=== PATIENT | female | born 1985 | race Caucasian/White ===

== ENCOUNTER 2016-08-15 23:49 | Inpatient (IN) | payer BC ==
[2016-08-16] MEDS ORDERED: OXYTOCIN 10 UNIT/ML 1 ML VIAL IM PRN (01:26)
[2016-08-16] MEDS ORDERED: CARBOPROST TROMETHAMINE 250 MCG/ML 1 ML AMP IM PRN (01:26)
[2016-08-16] MEDS ORDERED: TERBUTALINE 1 MG/ML VIAL SQ PRN (01:26)
[2016-08-16] MEDS ORDERED: LIDOCAINE 1% (PF) 10 MG/ML (30 ML SDV) SQ PRN (01:26)
[2016-08-16] MEDS ORDERED: METHYLERGONOVINE 0.2 MG/ML 1 ML AMP IM PRN (01:26)
[2016-08-16 01:40] VITALS: BMI 34.4
[2016-08-16] MEDS: LACTATED RINGERS 1,000 ML IV SCH ×2 (01:45→02:23)
[2016-08-16 01:52] LABS: Basophils % (A) 0 %; CH 28.3; CHCM 33.2; Eosinophils # (A) 0.3 k/uL (0-0.7); Eosinophils % (A) 2 %; HCT 38.6 % (34.0-46.0); HDW 3.35; HGB 12.5 gm/dL (11.4-16.0); Hypochromasia Slight; Luc # (Auto) 0.27; Luc % (Auto) 2; Lymphocytes # (A) 1.6 k/uL (1.0-4.8); Lymphocytes % (A) 10 %; MCH 27.7 pg (25.0-35.0); MCHC 32.4 g/dL (31.0-37.0); MCV 85.4 fL (80.0-100.0); Mean Platelet Volume 8.3; Monocytes # (A) 0.7 k/uL (0-1.0); Monocytes % (A) 4 %; Neutrophils # (A) 13.5 k/uL (1.3-7.7); Neutrophils % (A) 83 %; RBC 4.51 m/uL (3.80-5.40); RDW 13.7 % (11.5-15.5); WBC 16.3 k/uL (3.8-10.6); WBC (Perox) 16.96
[2016-08-16] MEDS ORDERED: fentaNYL (PF) 50 MCG/ML 5 ML AMP ONE (01:58)
[2016-08-16] MEDS ORDERED: SODIUM CHLORIDE 0.9% 100 ML BAG ONE (01:58)
[2016-08-16] MEDS ORDERED: BUPIVACAINE (PF) 0.25% 30 ML VIAL ONE (01:58)
--- NOTE | 2016-08-16 07:46 | P.HPOB ---
History of Present Illness H&P Date: 08/16/16 Chief Complaint: Labor at 38-6/7 weeks' This is a 31-year-old 3 para 06/14/2002 woman with an estimated due date of 08/24/2016 based on LMP. She presents at 38-6/7 weeks' gestation in spontaneous active labor. She has had an uncomplicated . On presentation she reports contractions however denies vaginal bleeding or leakage of fluids. Laboratory data: Blood type A+, antibody screen negative, rubella immune, VDRL nonreactive, hepatitis B surface antigen negative, HIV negative, group B strep negative. Obstetric history: 36 week vaginal delivery in 2005, 39 week vaginal delivery in 2010. Review of Systems All systems: negative Past Medical History Past Medical History: Thyroid Disorder (Hypothyroid) History of Any Multi-Drug Resistant Organisms: None Reported Past Surgical History: No Surgical Hx Reported Past Anesthesia/Blood Transfusion Reactions: No Reported Reaction Past Psychological History: No Psychological Hx Reported Smoking Status: Never smoker Past Alcohol Use History: Occasional Past Drug Use History: None Reported - Past Family History Mother Family Medical History: Diabetes Mellitus Medications and Allergies Home Medications Medication Instructions Recorded Confirmed Type Levothyroxine Sodium [Synthroid] 112 mcg PO DAILY 04/08/15 08/16/16 History Loratadine [Claritin] 10 mg PO DAILY 05/31/16 08/16/16 History Omeprazole [PriLOSEC] 40 mg PO DAILY 05/31/16 08/16/16 History Pnv with Ca,No.72/Iron/FA 1 tab PO DAILY 05/31/16 08/16/16 History [ Plus Tablet] Allergies Allergy/AdvReac Type Severity Reaction Status Date / Time sulfamethoxazole Allergy Severe Rash/Hives Verified 08/16/16 00:08 [From Bactrim] azithromycin [From Zithromax] Allergy Intermediate Nausea & Verified 08/16/16 00 :08 Vomiting & Diarrhea trimethoprim [From Bactrim] Allergy Rash/Hives Verified 08/16/16 00:08 Exam - Vital Signs Vital signs: Vital Signs Temp Pulse Resp BP 08/16/16 07:19 99.2 F 08/16/16 00:20 97.7 F 98 18 138/74 Intake and Output 08/15/16 08/16/16 08/16/16 22:59 06:59 14:59 Intake Total 2000 Output Total 200 Balance 1800 Intake: IV 2000 Lactated Ringers 1,000 ml 2000 @ 125 mls/hr IV .Q8H YULY Rx#:[id number] Output: Urine 200 Other: # Voids 1 Weight 82.554 kg Targeted physical exam is performed. Upon my initial evaluation the patient is resting comfortably with an epidural anesthetic in place. heart tones are reassuring by external monitoring. Her cervix is 7 cm dilated, 90% effaced, vertex in the -1 station. Artificial rupture of membranes is undertaken and blood-tinged clear fluid is noted. She has 1+ bilateral lower extremity edema. Results Result Diagrams: 08/16/16 01:45 Abnormal Lab Results - Last 24 Hours (Table) 08/16/16 Range/Units 01:45 WBC 16.3 H (3.8-10.6) k/uL Neutrophils # 13.5 H (1.3-7.7) k/uL Assessment and Plan (1) 38 weeks gestation of Status: Acute (2) Hypothyroid in , antepartum Status: Acute (3) Spontaneous onset of labor Status: Acute Plan: This is a 31-year-old 3 para 06/14/2002 woman who presents at 38-6/7 weeks' gestation in spontaneous active labor. status is currently reassuring by external monitoring. She is group B strep negative and Rh+ . I anticipate normal spontaneous vaginal delivery.
[2016-08-16] MEDS ORDERED: OXYTOCIN 30 UNITS/500 ML NS 30 UNIT in SALINE 1 500ML.BAG IV SCH (08:00)
[2016-08-16] MEDS ORDERED: ACETAMINOPHEN TAB 325 MG TAB PO PRN (09:37)
[2016-08-16] MEDS ORDERED: LANOLIN CREAM 5 GM TUBE TOPICAL PRN (09:37)
[2016-08-16] MEDS ORDERED: diphenhydrAMINE 25 MG CAP PO PRN (09:37)
[2016-08-16] MEDS ORDERED: ZOLPIDEM 5 MG TAB PO PRN (09:37)
[2016-08-16] MEDS ORDERED: SIMETHICONE 80 MG CHEWABLE PO PRN (09:37)
[2016-08-16] MEDS ORDERED: BENZOCAINE/MENTHOL SPRAY 1 GM/SPRAY AEROSOL TOPICAL PRN (09:37)
[2016-08-16] MEDS ORDERED: diphenhydrAMINE 50 MG/ML 1 ML VIAL IVP PRN ×2 (09:37)
[2016-08-16] MEDS ORDERED: HYDROCORTISONE 2.5% RECTAL CREAM 30 GM TUBE RECTAL PRN (09:37)
[2016-08-16] MEDS ORDERED: WITCH HAZEL 1 EACH MED..PAD TOPICAL PRN (09:37)
[2016-08-16] MEDS ORDERED: diphenhydrAMINE 50 MG CAP PO PRN (09:37)
--- NOTE | 2016-08-16 09:37 | P.PROBDLV ---
Vaginal Delivery Note - . Vaginal Delivery Note: Findings: Male infant in the vertex left occiput anterior position with Apgars of 9 at 1 minute and 9 at 5 minutes. Weight pending. First-degree perineal laceration. EBL 100 mL's. Delivery summary: This is a 31-year-old gravida3 para 06/14/2002 woman who presented in spontaneous active labor at 38-6/7 weeks' gestation. Following admission she did receive an epidural anesthetic. She underwent artificial rupture of membranes at approximate 7 cm dilated. She then progressed to complete cervical dilation. She had a rapid second stage of labor. With , she was repositioned, prepped and draped in the dorsal modified lithotomy position. With additional maternal effort the head delivered from the left occiput anterior position. There was a compound presentation with the hand delivering with the anterior shoulder. The rest the infant was delivered onto the field. The nose and mouth were bulb suctioned. The infant was placed on the maternal abdomen. After the cord was done pulsing it was clamped and cut. The infant was taken to the warmer for evaluation. Apgars were 9 at 1 minute and 9 at 5 minutes. Weight is pending. The perineum was inspected and a small first-degree laceration was noted. This was infused with lidocaine and repaired in a [id number] fashion with 3-0 Vicryl suture. An intact, three- vessel cord placenta was then expressed. It was inspected and noted to be intact. The vagina, cervix and perineum were all reinspected and noted to be without further lacerations. The uterus was massaged and was noted to be firm at the level of the umbilicus. All counts were correct. Both mother and were doing well post delivery in the room.
[2016-08-16] MEDS: IBUPROFEN 600 MG TAB PO PRN ×2 (10:00→19:52)
[2016-08-16] MEDS: SENNOSIDES-DOCUSATE SODIUM 1 EACH TAB PO SCH (19:52)
[2016-08-16] MEDS: OXYTOCIN 30 UNITS/500 ML NS 30 UNIT in SALINE 1 500ML.BAG IV SCH (19:53)
[2016-08-17] MEDS: IBUPROFEN 600 MG TAB PO PRN (05:37)
[2016-08-17 09:13] VITALS: BP 118/66; PULSE 83; RESP 16; TEMP 97.2
[2016-08-17] MEDS: SENNOSIDES-DOCUSATE SODIUM 1 EACH TAB PO SCH (09:13)
--- NOTE | 2016-08-17 09:18 | P.DS ---
Providers Date of admission: 08/16/16 01:25 Expected date of discharge: 08/17/16 Attending physician: Raf Bojorquez Primary care physician: Stated None - Discharge Diagnosis(es) (1) Normal spontaneous vaginal delivery Current Visit: Yes Status: Acute (2) 38 weeks gestation of Current Visit: Yes Status: Acute Hospital Course: The patient is a 31-year-old 3 para 1102 admitted at 38-6/7 weeks in early active labor with all signs reassuring. Her has been uncomplicated and group B strep status is negative. On labor and delivery, she underwent artificial rupture of membranes and had an epidural catheter placed for analgesia. She progressed to complete and then pushed to a normal spontaneous vaginal delivery of a viable male infant with Apgars of 9 at 1 minute and 9 at 5 minutes. Her course was unremarkable with vital signs or any stable and her temperature was afebrile throughout. She was deemed stable for discharge by day #1 and was discharged home to follow-up in the office in 6 weeks' time routinely. Discharge instructions included calling for any significantly increased bleeding or foul-smelling lochia, significantly increased fever abdominal pain, perineal complaints, breast complaints, or anything else that concerned her. She is additionally instructed to have nothing in the vagina for at least 6 weeks time to include intercourse. She understood her instructions and agrees follow up as noted above. Discharge medications included only [id number] analgesic pain medications as necessary. Maternal blood type is A+ and rubella status is immune. Procedures: 1. Epidural analgesia 2. Artificial rupture membranes #3. Normal spontaneous vaginal delivery Patient Condition at Discharge: Good Plan - Discharge Summary Discharge Medication List Levothyroxine Sodium [Synthroid] 112 mcg PO DAILY 04/08/15 [History] Loratadine [Claritin] 10 mg PO DAILY 05/31/16 [History] Omeprazole [PriLOSEC] 40 mg PO DAILY 05/31/16 [History] Pnv with Ca,No.72/Iron/FA [ Plus Tablet] 1 tab PO DAILY 05/31/16 [ History] Follow up Appointment(s)/Referral(s): Raf Bojorquez MD [STAFF PHYSICIAN] - 6 Weeks Discharge Disposition: HOME SELF-CARE
== END 2016-08-17 11:15 | disposition home or self-care (01) | DRG 775 ==
LOC: FBPOP 23:49 → 4FBP 08-16 01:25
PROVIDERS: ADMIT Obstetrics & Gynecology; ATTEND Obstetrics & Gynecology
PROC: 10E0XZZ Delivery of Products of Conception, External Approach (ICD-10-PCS; principal; 2016-08-16)
PROC: 0HQ9XZZ Repair Perineum Skin, External Approach (ICD-10-PCS; 2016-08-16)
PROC: 00HU33Z Insertion of Infusion Device into Spinal Canal, Percutaneous Approach (ICD-10-PCS; 2016-08-16)
PROC: 3E0R3CZ (ICD-10-PCS; 2016-08-16)
DX: O32.6XX0 Maternal care for compound presentation, not applicable or unspecified (principal); E03.9 Hypothyroidism, unspecified; O70.0 First degree perineal laceration during delivery; Z37.0 Single live birth; Z3A.38 38 weeks gestation of pregnancy; O99.284 Endocrine, nutritional and metabolic diseases complicating childbirth; Z79.899 Other long term (current) drug therapy
CPT/HCPCS: 59025; 85025; 88307; 99213

== ENCOUNTER → 2016-09-09 | Outpatient (CLI) | payer BC ==
[2016-09-09 12:19] LABS: CH 27.4; CHCM 32.6; HCT 42.5 % (34.0-46.0); HDW 2.86; HGB 14.1 gm/dL (11.4-16.0); MCHC 33.3 g/dL (31.0-37.0); MCV 84.3 fL (80.0-100.0); Mean Platelet Volume 8.2; RBC 5.04 m/uL (3.80-5.40); RDW 13.7 % (11.5-15.5); WBC 5.3 k/uL (3.8-10.6)
[2016-09-09 12:46] LABS: ALT 28 U/L (9-52); AST 25 U/L (14-36); Alkaline Phosphatase 95 U/L (38-126); Anion Gap 11 mmol/L; Blood Urea Nitrogen 13 mg/dL (7-17); Calcium 9.2 mg/dL (8.4-10.2); Carbon Dioxide 26 mmol/L (22-30); Chloride 104 mmol/L (98-107); Glucose 85 mg/dL (74-99); Non-African American GFR(MDRD) >60 (>60 ml/min/1.73 sqM); Potassium 4.7 mmol/L (3.5-5.1); Sodium 141 mmol/L (137-145); Total Bilirubin 0.5 mg/dL (0.2-1.3); Total Protein 7.2 g/dL (6.3-8.2)
== END | disposition home or self-care (01) ==
LOC: LABWHC1 11:53
PROVIDERS: ATTEND Physician Assistant Medical
DX: E03.9 Hypothyroidism, unspecified (principal); F53 Mental and behavioral disorders associated with the puerperium, not elsewhere classified; F41.9 Anxiety disorder, unspecified
CPT/HCPCS: 36415; 80053; 84439; 84443; 84480; 85027

== ENCOUNTER 2017-05-03 16:13 | Emergency (ER) | payer BC ==
[2017-05-03 16:24] VITALS: BP 133/74; PULSE 73; RESP 18; TEMP 97.5
--- NOTE | 2017-05-03 17:19 | ED ---
Upper Extremity HPI - General Chief Complaint: Extremity Injury, Upper Stated Complaint: Slammed finger in car door Time Seen by Provider: 05/03/17 16:43 Source: patient, RN notes reviewed Mode of arrival: ambulatory Limitations: no limitations - History of Present Illness Initial Comments: 29-year-old female presents emergency department to complaint of right hand third digit finger pain. Patient states that she went to catch a car door that her daughter tried discharged states that her finger slammed in the door. She states is not causing a laceration and there is no swelling to the distal tip of her finger or bleeding noted. Patient states that she has pain just proximal to the PIP patient states she is able to move her or causes moderate discomfort. - Related Data Home Medications Medication Instructions Recorded Confirmed Loratadine [Claritin] 10 mg PO DAILY 05/31/16 05/03/17 Omeprazole [PriLOSEC] 40 mg PO DAILY 05/31/16 05/03/17 Astelin Nasal [place] 1 spray EA NOSTRIL BID 05/03/17 05/03/17 Levothyroxine Sodium [Synthroid] 125 mcg PO DAILY 05/03/17 05/03/17 Allergies Allergy/AdvReac Type Severity Reaction Status Date / Time sulfamethoxazole Allergy Severe Rash/Hives Verified 05/03/17 16:49 [From Bactrim] azithromycin [From Zithromax] Allergy Intermediate Nausea & Verified 05/03/17 16 :49 Vomiting & Diarrhea trimethoprim [From Bactrim] Allergy Rash/Hives Verified 05/03/17 16:49 Review of Systems ROS Statement: Those systems with pertinent positive or pertinent negative responses have been documented in the HPI. ROS Other: All systems not noted in ROS Statement are negative. Past Medical History Past Medical History: Thyroid Disorder History of Any Multi-Drug Resistant Organisms: None Reported Past Surgical History: No Surgical Hx Reported Past Anesthesia/Blood Transfusion Reactions: No Reported Reaction Past Psychological History: No Psychological Hx Reported Smoking Status: Never smoker Past Alcohol Use History: Occasional Past Drug Use History: None Reported - Past Family History Mother Family Medical History: Diabetes Mellitus General Exam Limitations: no limitations General appearance: alert, in no apparent distress Head exam: Present: atraumatic, normocephalic, normal inspection Eye exam: Present: normal appearance, PERRL, EOMI. Absent: scleral icterus, conjunctival injection, periorbital swelling ENT exam: Present: normal exam, normal oropharynx, mucous membranes moist, TM's normal bilaterally Respiratory exam: Present: normal lung sounds bilaterally. Absent: respiratory distress, wheezes, rales, rhonchi, stridor Cardiovascular Exam: Present: regular rate, normal rhythm, normal heart sounds. Absent: systolic murmur, diastolic murmur, rubs, gallop, clicks Extremities exam: Present: other (Right hand third digit there is tenderness just proximal to the PIP no swelling no ecchymosis no abrasions or lacerations neurovascular intact Refill less than 2 seconds.) Course Vital Signs 05/03/17 16:22 Temperature 97.5 F L Pulse Rate 73 Respiratory 18 Rate Blood Pressure 133/74 O2 Sat by Pulse 98 Oximetry Medical Decision Making - Medical Decision Making 31-year-old female presents emergency department for finger injury. There is no acute fracture. Patient be discharged at this time return parameters were discussed Disposition Clinical Impression: Finger contusion Disposition: HOME SELF-CARE Condition: Stable Instructions: Contusion in Adults (ED) Additional Instructions: Please return to the Emergency Department if symptoms worsen or any other concerns. Referrals: Nicolas Da Silva, PAC [REFERRING] - 1-2 days Time of Disposition: 17:51
--- NOTE | 2017-05-03 17:48 | XR ---
EXAMINATION TYPE: XR finger RT DATE OF EXAM: 05/03/2017 COMPARISON: NONE HISTORY: Finger injury TECHNIQUE: 3 views FINDINGS: I see no fracture nor dislocation. Joint spaces are normal. There are no pathologic calcifi cations. IMPRESSION: Negative right middle finger exam.
== END 2017-05-03 18:16 | disposition home or self-care (01) ==
LOC: EC 16:13 → SUPCPDRO 16:13 → EC 18:16
DX: S60.031A Contusion of right middle finger without damage to nail, initial encounter (principal); E07.9 Disorder of thyroid, unspecified; Z88.1 Allergy status to other antibiotic agents; Z79.899 Other long term (current) drug therapy; W23.0XXA Caught, crushed, jammed, or pinched between moving objects, initial encounter
CPT/HCPCS: 99283

== ENCOUNTER 2017-05-12 11:59 | Emergency (ER) | payer BC ==
[2017-05-12 12:06] VITALS: BP 120/68; PULSE 76; RESP 18; TEMP 97.8
--- NOTE | 2017-05-12 12:16 | ED ---
Lower Extremity Injury HPI - General Chief Complaint: Extremity Injury, Lower Stated Complaint: Ankle Injury Time Seen by Provider: 05/12/17 12:07 Source: patient, RN notes reviewed, old records reviewed Mode of arrival: ambulatory Limitations: no limitations - History of Present Illness Initial Comments: 31-year-old female presents emergency Department with left ankle pain and swelling. She reports that she rolled her ankle yesterday while stepping off a step. Denies any previous ankle injuries. She states that she has been able to bear weight on it but does cause some pain and pressure. Pain is mainly over the lateral malleolus. She denies any foot or knee pain. Denies any peripheral paresthesias. Patient denies any recent fever, chills, shortness of breath, chest pain, back pain, abdominal pain, nausea vomiting, numbness or tingling, dysuria or hematuria, constipation or diarrhea, headaches or visual changes, or any other current symptoms - Related Data Home Medications Medication Instructions Recorded Confirmed Loratadine [Claritin] 10 mg PO DAILY 05/31/16 05/12/17 Omeprazole [PriLOSEC] 40 mg PO DAILY 05/31/16 05/12/17 Astelin Nasal [place] 1 spray EA NOSTRIL BID 05/03/17 05/12/17 Levothyroxine Sodium [Synthroid] 125 mcg PO DAILY 05/03/17 05/12/17 Previous Rx's Medication Instructions Recorded Ibuprofen [Motrin] 600 mg PO Q8HR PRN #20 tab 05/12/17 Allergies Allergy/AdvReac Type Severity Reaction Status Date / Time sulfamethoxazole Allergy Severe Rash/Hives Verified 05/12/17 12:06 [From Bactrim] azithromycin [From Zithromax] Allergy Intermediate Nausea & Verified 05/12/17 12 :06 Vomiting & Diarrhea trimethoprim [From Bactrim] Allergy Rash/Hives Verified 05/12/17 12:06 Review of Systems ROS Statement: Those systems with pertinent positive or pertinent negative responses have been documented in the HPI. ROS Other: All systems not noted in ROS Statement are negative. Past Medical History Past Medical History: Thyroid Disorder History of Any Multi-Drug Resistant Organisms: None Reported Past Surgical History: No Surgical Hx Reported Past Anesthesia/Blood Transfusion Reactions: No Reported Reaction Past Psychological History: No Psychological Hx Reported Smoking Status: Never smoker Past Alcohol Use History: Occasional Past Drug Use History: None Reported - Past Family History Mother Family Medical History: Diabetes Mellitus General Exam Limitations: no limitations General appearance: alert, in no apparent distress Head exam: Present: atraumatic, normocephalic, normal inspection Eye exam: Present: normal appearance, PERRL, EOMI. Absent: scleral icterus, conjunctival injection, periorbital swelling ENT exam: Present: normal exam, mucous membranes moist Neck exam: Present: normal inspection. Absent: tenderness, meningismus, lymphadenopathy Respiratory exam: Present: normal lung sounds bilaterally. Absent: respiratory distress, wheezes, rales, rhonchi, stridor Cardiovascular Exam: Present: regular rate, normal rhythm, normal heart sounds. Absent: systolic murmur, diastolic murmur, rubs, gallop, clicks GI/Abdominal exam: Present: soft, normal bowel sounds. Absent: distended, tenderness, guarding, rebound, rigid Extremities exam: Present: normal inspection Left Knee exam: Present: normal inspection, full ROM Lower Leg exam: Present: normal inspection, full ROM Ankle exam: Present: normal inspection, full ROM, tenderness (over lateral malleoulus ) Foot/Toe exam: Present: normal inspection, full ROM Neurovascular tendon exam: Present: no vascular compromise Gait: observed and normal Back exam: Present: normal inspection Neurological exam: Present: alert, oriented X3, CN II-XII intact Psychiatric exam: Present: normal affect, normal mood Skin exam: Present: warm, dry, intact, normal color. Absent: rash Course Vital Signs 05/12/17 12:04 Temperature 97.8 F Pulse Rate 76 Respiratory 18 Rate Blood Pressure 120/68 O2 Sat by Pulse 97 Oximetry Procedures - Orthopedic Splinting/Casting Injury #1 Side: left Lower Extremity Injury Location: ankle Lower Extremity Immobilizer: stirrup splint, AirCast, Timo wrap Other Orthopedic Equipment: crutches Additional Comments: Patient was reevaluated and neurovascularly intact after Timo wrap and ankle stirrup was applied. Medical Decision Making - Medical Decision Making Since emergency Department with left ankle pain after she rolled her ankle yesterday. Patient does have some tenderness over the lateral malleolus. She is bearing weight on it. On exam she does have some minor swelling noted, no bruising. At this time patient's x-ray show no acute fractures. She was placed in an Timo wrap and an ankle Aircast. Patient will be written for crutches. Discussed taking anti-inflammatory medicine and resting, icing and elevating the ankle. Patient agrees to treatment plan will comply. Discussed following up with orthopedic symptoms continue to persist. Return parameters were discussed. - Radiology Data Radiology results: report reviewed X-rays reviewed and negative for any abnormalities. A friend of symptoms continue to persist patient should follow-up with orthopedic in approximately 710 days. Disposition Clinical Impression: Left ankle sprain Disposition: HOME SELF-CARE Condition: Good Instructions: Ankle Sprain (ED) Additional Instructions: Patient recommended to follow up with orthopedic if symptoms continue to persist after one week. Use the Timo wrap, and splint as directed. Patient should rest, ice, and elevate the ankle. Return to emergency department if any alarming signs or symptoms occur. Prescriptions: Ibuprofen [Motrin] 600 mg PO Q8HR PRN #20 tab PRN Reason: Pain Referrals: Nicolas Da Silva PAC [Primary Care Provider] - 1-2 days Time of Disposition: 12:51
--- NOTE | 2017-05-12 12:41 | XR ---
EXAMINATION TYPE: XR ankle complete LT DATE OF EXAM: 05/12/2017 COMPARISON: NONE HISTORY: Pain FINDINGS: Three views of the ankle demonstrate the ankle mortise to be intact and symmetric. The joint spaces are preserved. The osseous structures are intact. IMPRESSION: 1. No definite acute fracture or dislocation, if symptoms persist follow-up study in 7 to 10 days wou ld be suggested.
== END 2017-05-12 13:08 | disposition home or self-care (01) ==
LOC: EC 11:59
DX: S93.402A Sprain of unspecified ligament of left ankle, initial encounter (principal); E07.9 Disorder of thyroid, unspecified; Z88.2 Allergy status to sulfonamides; Z88.1 Allergy status to other antibiotic agents; Z79.899 Other long term (current) drug therapy; X50.1XXA Overexertion from prolonged static or awkward postures, initial encounter
CPT/HCPCS: 29515; 99284

== ENCOUNTER 2017-10-31 13:52 | Emergency (ER) | payer BC ==
[2017-10-31 14:05] VITALS: BP 137/71; PULSE 79; RESP 16; TEMP 98
--- NOTE | 2017-10-31 15:06 | ED ---
General Adult HPI - General Chief complaint: Extremity Injury, Lower Stated complaint: foot injury Time Seen by Provider: 10/31/17 14:44 Source: patient Mode of arrival: ambulatory Limitations: no limitations - History of Present Illness Initial comments: 32-year-old female presents with right dorsal foot pain since yesterday. Patient states she was carrying a computer monitor out her car when it slipped and fell on the top of her foot. Patient had a flip-flop on. Patient states she did ice it yesterday and today ibuprofen. Patient states it hurts to ambulate and put pressure on it. No previous fracture but think she has sprained possibly that foot. No numbness or tingling. pt also having pressure in her left low back, no urgency or frequency but does feel bloated. no fever. no diarrhea -: days(s) (1) Location: right, lower extremity (foot) Quality: constant Improves with: immobilization Worsens with: movement (walking) Treatments Prior to Arrival: NSAID, cold therapy - Related Data Home Medications Medication Instructions Recorded Confirmed Loratadine [Claritin] 10 mg PO DAILY 05/31/16 10/31/17 Omeprazole [PriLOSEC] 40 mg PO DAILY 05/31/16 10/31/17 Astelin Nasal [place] 1 spray EA NOSTRIL BID 05/03/17 10/31/17 Levothyroxine Sodium [Synthroid] 125 mcg PO DAILY 05/03/17 10/31/17 Previous Rx's Medication Instructions Recorded Ibuprofen [Motrin] 600 mg PO Q8HR PRN #20 tab 05/12/17 Ciprofloxacin HCl [Cipro] 500 mg PO Q12HR #14 tablet 10/31/17 Allergies Allergy/AdvReac Type Severity Reaction Status Date / Time sulfamethoxazole Allergy Severe Rash/Hives Verified 10/31/17 14:05 [From Bactrim] azithromycin [From Zithromax] Allergy Intermediate Nausea & Verified 10/31/17 14 :05 Vomiting & Diarrhea trimethoprim [From Bactrim] Allergy Rash/Hives Verified 10/31/17 14:05 Review of Systems ROS Statement: Those systems with pertinent positive or pertinent negative responses have been documented in the HPI. ROS Other: All systems not noted in ROS Statement are negative. Musculoskeletal: Reports: other (right foot pain) Neurological: Reports: abnormal gait (limping). Denies: weakness, numbness, paresthesias Past Medical History Past Medical History: Thyroid Disorder History of Any Multi-Drug Resistant Organisms: None Reported Past Surgical History: No Surgical Hx Reported Past Anesthesia/Blood Transfusion Reactions: No Reported Reaction Past Psychological History: No Psychological Hx Reported Smoking Status: Never smoker Past Alcohol Use History: Occasional Past Drug Use History: None Reported - Past Family History Mother Family Medical History: Diabetes Mellitus General Exam Limitations: no limitations General appearance: alert, in no apparent distress GI/Abdominal exam: Present: soft, normal bowel sounds, other (mild left sided tender). Absent: distended, tenderness, guarding, rebound, rigid Back exam: Present: CVA tenderness (L) Neurological exam: Present: alert, oriented X3 Psychiatric exam: Present: normal affect, normal mood Skin exam: Present: warm, dry, intact Course Vital Signs 10/31/17 14:02 Temperature 98 F Pulse Rate 79 Respiratory 16 Rate Blood Pressure 137/71 O2 Sat by Pulse 99 Oximetry Medical Decision Making - Medical Decision Making Reviewed urinalysis and urine culture due to white blood cells that blood cells and bacteria be noted and there are we will start patient on ciprofloxacin. Reviewed x-ray negative for any acute changes patient given Timo wrap for support. - Lab Data Lab Results 10/31/17 10/31/17 Range/Units 15:10 15:10 Urine Color Light Yellow Urine Appearance Cloudy H (Clear) Urine pH 7.0 (5.0-8.0) Ur Specific [place] 1.004 (1.001-1.035) Urine Protein Negative (Negative) Urine Glucose (UA) Negative (Negative) Urine Ketones Negative (Negative) Urine Blood Trace H (Negative) Urine Nitrite Negative (Negative) Urine Bilirubin Negative (Negative) Urine Urobilinogen <2.0 (<2.0) mg/dL Ur Leukocyte Esterase Moderate H (Negative) Urine RBC 3 (0-5) /hpf Urine WBC 41 H (0-5) /hpf Ur Squamous Epith Cells 7 H (0-4) /hpf Urine Bacteria Rare H (None) /hpf Urine HCG, Qual Not Detected (Not Detectd) Disposition Clinical Impression: UTI (urinary tract infection), Foot pain, Contusion Disposition: HOME SELF-CARE Condition: Good Instructions: Urinary Tract Infection in Women (ED), Foot Contusion (ED) Prescriptions: Ciprofloxacin HCl [Cipro] 500 mg PO Q12HR #14 tablet Is patient prescribed a controlled substance at d/c from ED?: No If prescribed controlled substance>3 days was MAPS reviewed?: No When asked, does pt state using other controlled substances?: No Referrals: Laura Abdullahi DO [Primary Care Provider] - 1-2 days Time of Disposition: 16:01
[2017-10-31 15:24] LABS: Appearance,Urine Cloudy (Clear); Bacteria,Urine Rare /hpf; Bilirubin,Urine Negative (Negative); Blood,Urine Trace (Negative); Color,Urine Light Yellow; Glucose,Urine (UA) Negative (Negative); Ketones,Urine Negative (Negative); Leukocyte Esterase,Urine Moderate (Negative); Nitrite,Urine Negative (Negative); Protein,Urine Negative (Negative); RBC,Urine 3 /hpf (0-5); Specific Gravity,Urine 1.004 (1.001-1.035); Squamous Epithelial Cell,Urine 7 /hpf (0-4); Urobilinogen,Urine <2.0 mg/dL (<2.0); WBC,Urine 41 /hpf (0-5)
--- NOTE | 2017-10-31 15:39 | XR ---
EXAMINATION TYPE: XR foot complete RT DATE OF EXAM: 10/31/2017 COMPARISON: NONE HISTORY: 32-year-old female with pain after injury yesterday TECHNIQUE: Review FINDINGS: Incidental bipartite tibial sesamoid. No acute fracture, subluxation, or dislocation. IMPRESSION: No acute osseous abnormality seen.
== END 2017-10-31 16:07 | disposition home or self-care (01) ==
LOC: EC 13:52
DX: S90.31XA Contusion of right foot, initial encounter (principal); N39.0 Urinary tract infection, site not specified; E07.9 Disorder of thyroid, unspecified; Z79.899 Other long term (current) drug therapy; Z88.1 Allergy status to other antibiotic agents; Z88.2 Allergy status to sulfonamides; W01.0XXA Fall on same level from slipping, tripping and stumbling without subsequent striking against object, initial encounter
CPT/HCPCS: 81001; 81025; 87086; 99283

== ENCOUNTER 2018-03-18 10:56 | Emergency (ER) | payer BC ==
[2018-03-18 11:24] VITALS: BP 125/72; PULSE 60; RESP 18; TEMP 97.2
[2018-03-18] MEDS ORDERED: ACETAMINOPHEN TAB 500 MG TAB PO STA (11:40)
[2018-03-18] MEDS ORDERED: CYCLOBENZAPRINE 10 MG TAB PO STA (11:40)
--- NOTE | 2018-03-18 11:46 | ED ---
General Adult HPI - General Chief complaint: Neck Pain/Injury Stated complaint: Neck pain Time Seen by Provider: 03/18/18 11:32 Source: patient Mode of arrival: ambulatory Limitations: no limitations - History of Present Illness Initial comments: Patient is a 32-year-old female presents with a chief complaint of right-sided neck and shoulder pain after landing wrong after doing a flip on a trampoline yesterday with her kids. Patient denies any loss of consciousness, she denies any numbness or paresthesias. Aggravating factors include certain movements. Patient acknowledges headache likely from neck pain. She took Motrin last night with minimal relief. Patient drove herself to the emergency department today, she has no further complaints. - Related Data Home Medications Medication Instructions Recorded Confirmed Loratadine [Claritin] 10 mg PO DAILY 05/31/16 10/31/17 Omeprazole [PriLOSEC] 40 mg PO DAILY 05/31/16 10/31/17 Astelin Nasal [place] 1 spray EA NOSTRIL BID 05/03/17 10/31/17 Levothyroxine Sodium [Synthroid] 125 mcg PO DAILY 05/03/17 10/31/17 Previous Rx's Medication Instructions Recorded Ibuprofen [Motrin] 600 mg PO Q8HR PRN #20 tab 05/12/17 Ciprofloxacin HCl [Cipro] 500 mg PO Q12HR #14 tablet 10/31/17 Acetaminophen Tab [Tylenol Tab] 1,000 mg PO Q8HR #14 tablet 03/18/18 Cyclobenzaprine [Flexeril] 10 mg PO TID #12 tab 03/18/18 Ibuprofen [Motrin] 800 mg PO Q8H #14 tab 03/18/18 Allergies Allergy/AdvReac Type Severity Reaction Status Date / Time sulfamethoxazole Allergy Severe Rash/Hives Verified 10/31/17 14:05 [From Bactrim] azithromycin [From Zithromax] Allergy Intermediate Nausea & Verified 10/31/17 14 :05 Vomiting & Diarrhea trimethoprim [From Bactrim] Allergy Rash/Hives Verified 10/31/17 14:05 Review of Systems ROS Statement: Those systems with pertinent positive or pertinent negative responses have been documented in the HPI. ROS Other: All systems not noted in ROS Statement are negative. Musculoskeletal: Reports: arthralgia, other (Neck pain) Past Medical History Past Medical History: Thyroid Disorder History of Any Multi-Drug Resistant Organisms: None Reported Past Surgical History: No Surgical Hx Reported Past Anesthesia/Blood Transfusion Reactions: No Reported Reaction Past Psychological History: No Psychological Hx Reported Smoking Status: Never smoker Past Alcohol Use History: Occasional Past Drug Use History: None Reported - Past Family History Mother Family Medical History: Diabetes Mellitus General Exam Limitations: no limitations General appearance: alert, in no apparent distress Head exam: Present: atraumatic, normocephalic Eye exam: Present: normal appearance, PERRL ENT exam: Present: normal exam, mucous membranes moist Neck exam: Present: normal inspection, tenderness, other (Patient has limited mobility when turning her head to the right side. There is paraspinal muscular spasm on the right, there is no midline tenderness.). Absent: meningismus, full ROM, lymphadenopathy, thyromegaly Respiratory exam: Present: normal lung sounds bilaterally. Absent: respiratory distress Cardiovascular Exam: Present: regular rate, normal rhythm GI/Abdominal exam: Present: soft. Absent: distended, tenderness Rectal exam: Present: deferred Extremities exam: Present: normal inspection, full ROM Back exam: Present: normal inspection Neurological exam: Present: alert, oriented X3, CN II-XII intact. Absent: motor sensory deficit Psychiatric exam: Present: normal affect, normal mood Skin exam: Present: warm, dry, intact Course Vital Signs 03/18/18 11:20 Temperature 97.2 F L Pulse Rate 60 Respiratory 18 Rate Blood Pressure 125/72 O2 Sat by Pulse 98 Oximetry Medical Decision Making - Medical Decision Making Patient presents with chief complaint of right-sided neck and shoulder pain. On initial evaluation, vitals are stable, patient is in no acute distress. There is no midline tenderness, patient does not have any numbness paresthesias , or motor deficit in the upper extremities. I have a low suspicion for spinal cord injury. There is spasm of the paraspinal musculature of the right neck, and right shoulder. At this time, imaging does not seem to be warranted, patient to be treated with Tylenol and Flexeril. She was instructed to use Tylenol, Motrin, Flexeril, heat and ice on the outpatient basis. Follow-up primary care in 1-2 days, return to the emergency department if symptoms worsen or change. Disposition Clinical Impression: Strain of neck muscle Disposition: HOME SELF-CARE Condition: Good Instructions: Cervical Strain (ED) Is patient prescribed a controlled substance at d/c from ED?: No Referrals: None,Stated [Primary Care Provider] - 1-2 days
== END 2018-03-18 12:02 | disposition home or self-care (01) ==
LOC: EC 10:56
DX: S16.1XXA Strain of muscle, fascia and tendon at neck level, initial encounter (principal); E07.9 Disorder of thyroid, unspecified; Z88.1 Allergy status to other antibiotic agents; Z88.2 Allergy status to sulfonamides; Z79.899 Other long term (current) drug therapy; X50.1XXA Overexertion from prolonged static or awkward postures, initial encounter; Y93.44 Activity, trampolining; Y92.009 Unspecified place in unspecified non-institutional (private) residence as the place of occurrence of the external cause
CPT/HCPCS: 99283

== ENCOUNTER 2018-04-19 19:22 | Emergency (ER) | payer BC ==
[2018-04-19 19:42] VITALS: RESP 18; TEMP 98.7
--- NOTE | 2018-04-19 20:12 | ED ---
Upper Extremity HPI - General Chief Complaint: Extremity Injury, Upper Stated Complaint: Arm injury Time Seen by Provider: 04/19/18 19:44 Source: patient, RN notes reviewed, old records reviewed Mode of arrival: ambulatory Limitations: no limitations - History of Present Illness Initial Comments: Patient is a 32-year-old female who presents emergency department today with chief complaint of right elbow and forearm pain. Patient reports that she was painting, and tripped off a ladder. She reports that she landed on the couch and caught herself on her right elbow. Patient reports that she's had pain with flexion and extension of the elbow into the forearm. She reports occasional tingling to the distal fingertips. Patient states that she's had no previous injuries. She is right-handed.Patient denies any recent fever, chills , shortness of breath, chest pain, back pain, abdominal pain, nausea vomiting, numbness or tingling, dysuria or hematuria, constipation or diarrhea, headaches or visual changes, or any other current symptoms - Related Data Home Medications Medication Instructions Recorded Confirmed Levothyroxine Sodium [Synthroid] 125 mcg PO DAILY 05/03/17 04/19/18 Azelastine HCl 1 spray EA NOSTRIL DAILY PRN 04/19/18 04/19/18 Vitamin B Complex 1 cap PO DAILY 04/19/18 04/19/18 Previous Rx's Medication Instructions Recorded Ibuprofen 600 mg PO TID #30 tablet 04/19/18 Allergies Allergy/AdvReac Type Severity Reaction Status Date / Time sulfamethoxazole Allergy Severe Rash/Hives Verified 04/19/18 19:48 [From Bactrim] azithromycin [From Zithromax] Allergy Intermediate Nausea & Verified 04/19/18 19 :48 Vomiting & Diarrhea trimethoprim [From Bactrim] Allergy Rash/Hives Verified 04/19/18 19:48 Review of Systems ROS Statement: Those systems with pertinent positive or pertinent negative responses have been documented in the HPI. ROS Other: All systems not noted in ROS Statement are negative. Past Medical History Past Medical History: Thyroid Disorder History of Any Multi-Drug Resistant Organisms: None Reported Past Surgical History: No Surgical Hx Reported Past Anesthesia/Blood Transfusion Reactions: No Reported Reaction Past Psychological History: No Psychological Hx Reported Smoking Status: Never smoker Past Alcohol Use History: Occasional Past Drug Use History: None Reported - Past Family History Mother Family Medical History: Diabetes Mellitus General Exam - General Exam Comments Initial Comments: This Patient is a 32-year-old female. Alert and oriented 3. Patient appears in no significant distress. Limitations: no limitations General appearance: alert, in no apparent distress Head exam: Present: atraumatic, normocephalic, normal inspection Eye exam: Present: normal appearance, PERRL, EOMI. Absent: scleral icterus, conjunctival injection, periorbital swelling ENT exam: Present: normal exam, mucous membranes moist Neck exam: Present: normal inspection. Absent: tenderness, meningismus, lymphadenopathy Respiratory exam: Present: normal lung sounds bilaterally. Absent: respiratory distress, wheezes, rales, rhonchi, stridor Cardiovascular Exam: Present: regular rate, normal rhythm, normal heart sounds. Absent: systolic murmur, diastolic murmur, rubs, gallop, clicks GI/Abdominal exam: Present: soft, normal bowel sounds. Absent: distended, tenderness, guarding, rebound, rigid Right Elbow exam: Present: normal inspection, full ROM, tenderness (Has tenderness over the right brachial radialis muscle.) Forearm Wrist exam: Present: normal inspection, full ROM Hand Wrist exam: Present: normal inspection, full ROM Vascular: Present: normal capillary refill Back exam: Present: normal inspection Neurological exam: Present: alert Psychiatric exam: Present: normal affect, normal mood Skin exam: Present: warm, dry, intact, normal color. Absent: rash Course Vital Signs 04/19/18 04/19/18 19:39 21:30 Temperature 98.7 F Pulse Rate 73 80 Respiratory 18 18 Rate Blood Pressure 135/82 118/73 O2 Sat by Pulse 98 98 Oximetry Medical Decision Making - Medical Decision Making 32-year-old female presents razor today with right elbow and forearm pain. Patient reports she was painting, tripped and fell and landed on a couch. She has full range of motion of the elbow and forearm. There is some tenderness over the brachial radialis muscle. She has normal sensation and range of motion in her fingers and and normal pulses distally. 2+ dorsalis radial and ulnar pulse. She is right-handed. X-rays today are negative for any acute process. No evidence of fracture. She is given an Timo wrap and sling. Discussed a temperature medication and following up with orthopedic. All questions answered return parameters were discussed. - Radiology Data Radiology results: report reviewed Normal forearm and normal elbow xray. Disposition Clinical Impression: Contusion of forearm, right, Strain of elbow, right Disposition: HOME SELF-CARE Condition: Good Instructions: Elbow Sprain (ED) Additional Instructions: Patient advised to follow-up with primary care physician. Return to emergency department if any alarming signs or symptoms occur. Prescriptions: Ibuprofen 600 mg PO TID #30 tablet Is patient prescribed a controlled substance at d/c from ED?: No Referrals: Sarah Santo DO [Primary Care Provider] - 1-2 days Lele Church DO [Doctor of Osteopathic Medicine] - 1-2 days Time of Disposition: 21:15
--- NOTE | 2018-04-19 20:51 | XR ---
PROCEDURE: XR elbow complete RT 3V DATE AND TIME: 04/19/2018 8:09 PM CLINICAL INDICATION: Pain TECHNIQUE: Department protocol. 3V COMPARISON: None FINDINGS: There is no fracture or malalignment. The soft tissues are unremarkable. IMPRESSION: NO ACUTE PROCESS.
--- NOTE | 2018-04-19 20:53 | XR ---
PROCEDURE: XR forearm RT 2V DATE AND TIME: 04/19/2018 8:09 PM CLINICAL INDICATION: [facility] Pain TECHNIQUE: AP and lateral COMPARISON: 05/25/2015 FINDINGS: There is no fracture or malalignment. The soft tissues are unremarkable. IMPRESSION: NO ACUTE PROCESS.
[2018-04-19 21:31] VITALS: BP 118/73; PULSE 80
== END 2018-04-19 21:32 | disposition home or self-care (01) ==
LOC: EC 19:22
DX: S56.911A Strain of unspecified muscles, fascia and tendons at forearm level, right arm, initial encounter (principal); E07.9 Disorder of thyroid, unspecified; Z88.1 Allergy status to other antibiotic agents; Z88.2 Allergy status to sulfonamides; Z79.899 Other long term (current) drug therapy; W11.XXXA Fall on and from ladder, initial encounter; Y93.89 Activity, other specified
CPT/HCPCS: 99284

== ENCOUNTER 2018-08-17 20:39 | Emergency (ER) | payer BC ==
[2018-08-17 21:10] VITALS: RESP 16
--- NOTE | 2018-08-17 21:35 | XR ---
EXAMINATION TYPE: XR foot complete RT DATE OF EXAM: 08/17/2018 COMPARISON: 10/31/2017 HISTORY: Foot pain TECHNIQUE: 3 views FINDINGS: Metatarsals are intact. I see no fracture nor dislocation. There are no erosions. IMPRESSION: Negative right foot exam. No change.
--- NOTE | 2018-08-17 21:36 | XR ---
EXAMINATION TYPE: XR ankle complete RT DATE OF EXAM: 08/17/2018 COMPARISON: NONE HISTORY: Ankle pain TECHNIQUE: 3 views FINDINGS: I see no fracture nor dislocation. Ankle mortise is anatomic. Joint spaces are normal. IMPRESSION: Negative right ankle exam.
--- NOTE | 2018-08-17 22:15 | ED ---
General Adult HPI - General Chief complaint: Extremity Injury, Lower Stated complaint: Ankle injury Time Seen by Provider: 08/17/18 21:14 Source: patient, RN notes reviewed, old records reviewed Mode of arrival: ambulatory Limitations: no limitations - History of Present Illness Initial comments: 33 year old female patient is ED after sustaining a right ankle injury. Patient works that she was walking downstairs today when she suffered a right ankle ED inversion injury. Patient currently has pain in her medial malleolus. Patient has not beared weight since injury due to pain in her medial malleolus. Patient did not fall to ground, denies any other injury. Patient denies all other complaints. Systemic: Pt denies fatigue, fever/chills, rash. Pt denies weakness, night sweats, weight loss. Neuro: Pt denies headache, visual disturbances, syncope or pre-syncope. HEENT: Pt denies ocular discharge or irritation, otalgia, rhinorrhea, pharyngitis or notable lymphadenopathy. Cardiopulmonary: Pt denies chest pain, SOB, heart palpitations, dyspnea on exertion. Abdominal/GI: Pt denies abdominal pain, n/v/d. : Pt denies dysuria, burning w/ urination, frequency/urgency. Denies new onset urinary or bowel incontinence. MSK: Pt denies loss of strength or function in extremities. Neuro: Pt denies new onset weakness, paresthesias. - Related Data Home Medications Medication Instructions Recorded Confirmed Levothyroxine Sodium [Synthroid] 125 mcg PO DAILY 05/03/17 08/17/18 Allergies Allergy/AdvReac Type Severity Reaction Status Date / Time sulfamethoxazole Allergy Severe Rash/Hives Verified 08/17/18 21:42 [From Bactrim] azithromycin [From Zithromax] Allergy Intermediate Nausea & Verified 08/17/18 21:42 Vomiting & Diarrhea trimethoprim [From Bactrim] Allergy Rash/Hives Verified 08/17/18 21:42 Review of Systems ROS Statement: Those systems with pertinent positive or pertinent negative responses have been documented in the HPI. ROS Other: All systems not noted in ROS Statement are negative. Past Medical History Past Medical History: Thyroid Disorder History of Any Multi-Drug Resistant Organisms: None Reported Past Surgical History: No Surgical Hx Reported Past Anesthesia/Blood Transfusion Reactions: No Reported Reaction Past Psychological History: No Psychological Hx Reported Smoking Status: Never smoker Past Alcohol Use History: Occasional Past Drug Use History: None Reported - Past Family History Mother Family Medical History: Diabetes Mellitus General Exam - General Exam Comments Initial Comments: Constitutional: NAD, AOX3, Pt has pleasant affect. HEENT: NC/AT, trachea midline, neck supple, no lymphadenopathy. Posterior pharynx non erythematous, without exudates. External ears appear normal, without discharge. Mucous membranes moist. Eyes PERRLA, EOM intact. There is no scleral icterus. No pallor noted. Cardiopulmonary: RRR, no murmurs, rubs or gallops, no JVD noted. Lungs CTAB in anterior and posterior archer. No peripheral edema. Abdominal exam: Abdomen soft and non-distended. Abdomen non-tender to palpation in all 4 quadrants. Bowel sounds active in LLQ. No hepatosplenomegaly. No ecchymosis Neuro: CN II-XII grossly intact. No nuchal rigidity. MSK: Medial malleolus of right ankle mildly tender to palpation. No ecchymoses. Plantar and dorsiflexion intact. Patient able to wiggle toes. No ecchymoses. Neurovascularly intact. Dorsalis pedis and posterior tibialis pulse +2. Sens ation intact. Patient neurovascularly intact after splint placement. No posterior calf tenderness bilaterally, homans sign negative bilaterally. Posterior tibialis and radial pulse +2 bilaterally. Sensation intact in upper and lower extremities. Full active ROM in upper and lower extremities, 5/5 stregnth. Limitations: no limitations Course Vital Signs 08/17/18 21:05 Temperature 98.4 F Pulse Rate 65 Respiratory 16 Rate Blood Pressure 120/74 O2 Sat by Pulse 98 Oximetry Medical Decision Making - Medical Decision Making 33 year old female patient is ED after sustaining a right ankle injury. Patient works that she was walking downstairs today when she suffered a right ankle ED inversion injury. Patient currently has pain in her medial malleolus. Patient has not beared weight since injury due to pain in her medial malleolus. Patient did not fall to ground, denies any other injury. Patient denies all other complaints. Patient vital sign stable, afebrile. Physical exam displayed: Medial malleolus of right ankle mildly tender to palpation. No ecchymoses. Plantar and dorsiflexion intact. Patient able to wiggle toes. No ecchymoses. Neurovascularly intact. Dorsalis pedis and posterior tibialis pulse +2. Sensation intact. Patient neurovascularly intact after splint placement. Plain film of right foot and ankle did not display any acute pathology. A shunt placed in posterior ankle splint. Patient neurovascularly intact after splint placement. Patient to not bear weight until orthopedic follow-up. Patient reports that she will follow-up with her private orthopedic surgeon. Patient also be referred to on-call orthopedic surgeon. Patient is Tylenol or ibuprofen for pain. Patient to follow up with PCP in 1-2 days. Patient to follow up with PCP if new symptoms develop or condition worsens in any way. Case discussed with Dr. Grant. Disposition Clinical Impression: Ankle sprain Disposition: HOME SELF-CARE Condition: Stable Instructions (If sedation given, give patient instructions): Ankle Sprain (ED) Additional Instructions: Patient to adhere to previously discussed treatment plan and will take medication(s) as directed. Patient to follow up with PCP in 1-2 days. Patient to return to ED if symptoms do not improve. Please do not bear weight until orthopedic follow-up. Please follow up with PCP in 1-2 days. Please use Tylenol or Motrin for pain as needed. Is patient prescribed a controlled substance at d/c from ED?: No Referrals: Nonstaff,Physician [Primary Care Provider] - 1-2 days Enzo Morfin MD [STAFF PHYSICIAN] - 1-2 days
[2018-08-17 22:27] VITALS: BP 113/84; PULSE 75; TEMP 98.9
== END 2018-08-17 22:38 | disposition home or self-care (01) ==
LOC: EC 20:39
DX: S93.401A Sprain of unspecified ligament of right ankle, initial encounter (principal); E07.9 Disorder of thyroid, unspecified; Z88.1 Allergy status to other antibiotic agents; Z88.2 Allergy status to sulfonamides; Z79.890 Hormone replacement therapy; X50.1XXA Overexertion from prolonged static or awkward postures, initial encounter; Y93.01 Activity, walking, marching and hiking; Y92.009 Unspecified place in unspecified non-institutional (private) residence as the place of occurrence of the external cause
CPT/HCPCS: 29515; 99284

== ENCOUNTER 2018-09-08 11:46 | Emergency (ER) | payer BC ==
[2018-09-08 11:56] VITALS: BP 122/70; PULSE 84; RESP 18; TEMP 97.9
[2018-09-08] MEDS ORDERED: KETOROLAC 30 MG/ML 1 ML VIAL IM STA (12:14)
[2018-09-08 13:02] LABS: Appearance,Urine Clear (Clear); Bilirubin,Urine Negative (Negative); Blood,Urine Negative (Negative); Color,Urine Yellow; Glucose,Urine (UA) Negative (Negative); Ketones,Urine Negative (Negative); Leukocyte Esterase,Urine Negative (Negative); Nitrite,Urine Negative (Negative); Protein,Urine Negative (Negative); Specific Gravity,Urine 1.024 (1.001-1.035); Urobilinogen,Urine <2.0 mg/dL (<2.0)
--- NOTE | 2018-09-08 13:10 | ED ---
General Adult HPI - General Chief complaint: Back Pain/Injury Stated complaint: Back pain Time Seen by Provider: 09/08/18 12:00 Source: patient, RN notes reviewed Mode of arrival: ambulatory Limitations: no limitations - History of Present Illness Initial comments: 33-year-old female presents to the emergency department for a chief complaint of back pain times one day. Patient states she was lifting weights and squatting yesterday and started to feel pain in her back. She states that today it has worsened. Patient states she feels more stiff than normal. This is in the center of her lower back. Denies any other trauma or falls. Denies any radiating pain or weakness of the legs. Denies bladder or bowel changes or saddle anesthesia. Denies history of IV drug abuse or fevers. Patient states pain worsens from going from sitting to standing or other changes in position and started to feel better after she is up and walking for a bit. Patient has no other complaints at this time including shortness of breath, chest pain, abdominal pain, nausea or vomiting, headache, or visual changes. - Related Data Home Medications Medication Instructions Recorded Confirmed Levothyroxine Sodium [Synthroid] 125 mcg PO DAILY 05/03/17 08/17/18 Previous Rx's Medication Instructions Recorded Cyclobenzaprine [Flexeril] 5 mg PO TID #12 tablet 09/08/18 Allergies Allergy/AdvReac Type Severity Reaction Status Date / Time sulfamethoxazole Allergy Severe Rash/Hives Verified 09/08/18 11:57 [From Bactrim] azithromycin [From Zithromax] Allergy Intermediate Nausea & Verified 09/08/18 11:57 Vomiting & Diarrhea trimethoprim [From Bactrim] Allergy Rash/Hives Verified 09/08/18 11:57 Review of Systems ROS Statement: Those systems with pertinent positive or pertinent negative responses have been documented in the HPI. ROS Other: All systems not noted in ROS Statement are negative. Past Medical History Past Medical History: Thyroid Disorder History of Any Multi-Drug Resistant Organisms: None Reported Past Surgical History: No Surgical Hx Reported Past Anesthesia/Blood Transfusion Reactions: No Reported Reaction Past Psychological History: No Psychological Hx Reported Smoking Status: Never smoker Past Alcohol Use History: Occasional Past Drug Use History: None Reported - Past Family History Mother Family Medical History: Diabetes Mellitus General Exam Limitations: no limitations General appearance: alert, in no apparent distress Head exam: Present: atraumatic, normocephalic, normal inspection Eye exam: Present: normal appearance, PERRL, EOMI. Absent: scleral icterus, conjunctival injection, periorbital swelling ENT exam: Present: normal exam, mucous membranes moist Neck exam: Present: normal inspection, full ROM. Absent: tenderness, meningismus, lymphadenopathy Respiratory exam: Present: normal lung sounds bilaterally. Absent: respiratory distress, wheezes, rales, rhonchi, stridor Cardiovascular Exam: Present: regular rate, normal rhythm, normal heart sounds. Absent: systolic murmur, diastolic murmur, rubs, gallop, clicks GI/Abdominal exam: Present: soft, normal bowel sounds. Absent: distended, tenderness, guarding, rebound, rigid Extremities exam: Present: normal capillary refill (Capillary refill less than 2 seconds, DP pulse 2+ in lower extremities bilaterally) Back exam: Present: tenderness (Generalized low back tenderness over paraspinal and sacral area). Absent: full ROM (Patient able to flex lumbar spine 45 and extend to about 15 before having pain) Neurological exam: Present: alert, oriented X3, CN II-XII intact Psychiatric exam: Present: normal affect, normal mood Course Vital Signs 09/08/18 11:54 Temperature 97.9 F Pulse Rate 84 Respiratory 18 Rate Blood Pressure 122/70 O2 Sat by Pulse 98 Oximetry Medical Decision Making - Medical Decision Making 33-year-old female presents for low back pain. Patient states she was squatting weights when this occurred. She states it has worsened she is having spasms. Patient is ambulatory. Neurovascular intact in lower extremities. No fevers, history of IV drug use, saddle anesthesia, or changes in bladder or bowel movements. HCG negative which was checked this patient was unsure if she could be . No . Toradol will be given. Patient will continue to take Motrin Tylenol for pain and will be given muscle relaxer. Educated not to drive or operate machinery while taking muscle relaxer. Patient aware of return parameters including weakness in the lower extremities, fever, changes in bladder or bowel habits. Educated to follow up with primary care in 1-2 days or return here if she has worsening symptoms. - Lab Data Lab Results 09/08/18 09/08/18 Range/Units 12:40 12:40 Urine Color Yellow Urine Appearance Clear (Clear) Urine pH 6.0 (5.0-8.0) Ur Specific [place] 1.024 (1.001-1.035) Urine Protein Negative (Negative) Urine Glucose (UA) Negative (Negative) Urine Ketones Negative (Negative) Urine Blood Negative (Negative) Urine Nitrite Negative (Negative) Urine Bilirubin Negative (Negative) Urine Urobilinogen <2.0 (<2.0) mg/dL Ur Leukocyte Esterase Negative (Negative) Urine HCG, Qual Not Detected (Not Detectd) Disposition Clinical Impression: Mechanical back pain Disposition: HOME SELF-CARE Condition: Good Instructions (If sedation given, give patient instructions): Acute Low Back Pain (ED) Additional Instructions: Please take Motrin and Tylenol for pain. Please take muscle relaxer as needed but do not drive or operate machinery while taking this. Follow up with primary care in 1-2 days. Return here if you have any worsening symptoms. Prescriptions: Cyclobenzaprine [Flexeril] 5 mg PO TID #12 tablet Is patient prescribed a controlled substance at d/c from ED?: No Referrals: Sarah Santo DO [Primary Care Provider] - 1-2 days Time of Disposition: 13:09
== END 2018-09-08 13:35 | disposition home or self-care (01) ==
LOC: EC 11:46 → SUPCPDRO 11:46 → EC 13:35
DX: M54.5 Low back pain (principal); E07.9 Disorder of thyroid, unspecified; Z79.890 Hormone replacement therapy; Z88.1 Allergy status to other antibiotic agents; Z88.2 Allergy status to sulfonamides
CPT/HCPCS: 81003; 81025; 99283; 96372; J1885

== ENCOUNTER 2018-12-19 09:34 | Emergency (ER) | payer BC ==
[2018-12-19 09:39] VITALS: BP 115/74; PULSE 68; RESP 16; TEMP 98.7
--- NOTE | 2018-12-19 10:28 | XR ---
EXAMINATION TYPE: XR hand complete RT DATE OF EXAM: 12/19/2018 COMPARISON: Forearm radiograph 04/19/2018 HISTORY: 33-year-old male with pain TECHNIQUE: 3 views FINDINGS: Stable intraosseous ganglion cyst within the distal pole of the scaphoid. No acute fracture , subluxation, or dislocation. IMPRESSION: No acute osseous abnormality seen.
--- NOTE | 2018-12-19 11:01 | ED ---
General Adult HPI - General Chief complaint: Extremity Injury, Upper Stated complaint: rt hand injury Time Seen by Provider: 12/19/18 10:07 Source: patient Mode of arrival: ambulatory Limitations: no limitations - History of Present Illness Initial comments: Patient is a 33-year-old female presents emergency department with right hand pain. Patient reports moving furniture yesterday when she developed the sudden onset of pain on the medial aspect of her right hand. Patient reports the pain is a 5 and throbbing. Patient reports the pain is alleviated at rest and exacerbated when pressure is applied between the fourth and fifth metacarpals. Patient denies any numbness and tingling. Patient denies any trauma to the area. Patient denies any abrasions, lacerations, skin discolorations, erythema or edema. Patient denies taking medication to alleviate the pain. - Related Data Home Medications Medication Instructions Recorded Confirmed Levothyroxine Sodium [Synthroid] 125 mcg PO DAILY 05/03/17 12/19/18 Cyanocobalamin [Vitamin B-12] 500 mcg PO DAILY 12/19/18 12/19/18 Allergies Allergy/AdvReac Type Severity Reaction Status Date / Time sulfamethoxazole Allergy Severe Rash/Hives Verified 12/19/18 09:54 [From Bactrim] azithromycin [From Zithromax] Allergy Intermediate Nausea & Verified 12/19/18 09:54 Vomiting & Diarrhea trimethoprim [From Bactrim] Allergy Rash/Hives Verified 12/19/18 09:54 Review of Systems ROS Statement: Those systems with pertinent positive or pertinent negative responses have been documented in the HPI. ROS Other: All systems not noted in ROS Statement are negative. Past Medical History Past Medical History: Thyroid Disorder History of Any Multi-Drug Resistant Organisms: None Reported Past Surgical History: No Surgical Hx Reported Past Anesthesia/Blood Transfusion Reactions: No Reported Reaction Past Psychological History: No Psychological Hx Reported Smoking Status: Never smoker Past Alcohol Use History: Occasional Past Drug Use History: None Reported - Past Family History Mother Family Medical History: Diabetes Mellitus General Exam - General Exam Comments Initial Comments: General: Well-developed well-nourished distress HEENT: Normocephalic/atraumatic, PERLL, pharynx erythema, swallowing well, EAC no erythema, no exudates, TM clear, no cervical lymph nodes Neck: Supple, nontender, trachea midline Chest/Lungs: Normal respirations, no signs of respiratory distress clear to auscultation bilaterally no wheezes, rales, rhonchi Cardiac: Regular rate and rhythm, normal S1-S2, no murmurs rubs or gallops Abdomen/GI: Soft nontender, bowel sounds equal or quadrant x4, no guarding, no rebound no CVA tenderness Musculoskeletal: full range of motion, no edema, strength equal bilaterally, +2 radial and ulnar pulses bilaterally, negative Tinnel and Phalen, no anatomical snuffbox tenderness Skin: Warmth, no rashes or lesions, no cyanosis or diaphoresis Neurologic: AAO x 3, CN 2-12 intact, Psychiatric: Mood and affect normal, judgment normal Limitations: no limitations Course Vital Signs 12/19/18 09:37 Temperature 98.7 F Pulse Rate 68 Respiratory 16 Rate Blood Pressure 115/74 O2 Sat by Pulse 97 Oximetry Medical Decision Making - Medical Decision Making Patient is a 33-year-old female presenting to emergency Department with right mccurdy nd pain. X-ray of the right hand is negative for acute fractures or dislocations. Intraosseous ganglion cyst noted on the distal pole scaphoid. Based on history and physical examination suspect the patient to have sprained her right hand. Patient advised to keep warm compresses and massage the area of injury. Patient advised to alternate between Tylenol and ibuprofen for pain control. Patient advised to follow-up with orthopedics. Patient advised to return to emergency department if symptoms worsen. Case discussed with physician. Disposition Clinical Impression: Sprain of hand, right Disposition: HOME SELF-CARE Condition: Stable Instructions (If sedation given, give patient instructions): Hand Sprain (ED) Additional Instructions: Please alternate between Tylenol and ibuprofen for pain control. Please follow- up with orthopedics. Please return to emergency department if symptoms worsen. Is patient prescribed a controlled substance at d/c from ED?: No Referrals: None,Stated [Primary Care Provider] - 1-2 days Benjie Chu MD [Medical Doctor] - 1-2 days Time of Disposition: 10:59
[2018-12-19] MEDS ORDERED: ACETAMINOPHEN TAB 325 MG TAB PO STA (11:22)
== END 2018-12-19 11:20 | disposition home or self-care (01) ==
LOC: EC 09:34
DX: S63.91XA Sprain of unspecified part of right wrist and hand, initial encounter (principal); M67.441 Ganglion, right hand; E07.9 Disorder of thyroid, unspecified; Z79.890 Hormone replacement therapy; Z88.1 Allergy status to other antibiotic agents; Z88.2 Allergy status to sulfonamides; X58.XXXA Exposure to other specified factors, initial encounter
CPT/HCPCS: 99283

== ENCOUNTER 2019-03-01 10:30 | Emergency (ER) | payer BC ==
[2019-03-01 10:39] VITALS: BP 121/84; PULSE 69; RESP 18; TEMP 98.1
--- NOTE | 2019-03-01 11:26 | XR ---
EXAMINATION TYPE: XR ankle complete RT DATE OF EXAM: 03/01/2019 CLINICAL HISTORY: Running injury yesterday with pain. TECHNIQUE: Frontal, lateral and oblique images of the right ankle are obtained. COMPARISON: Right ankle x-ray August 17, 2018. FINDINGS: There is no acute fracture/dislocation evident in the right ankle. The ankle mortise appe ars within normal limits. The overlying soft tissue appears unremarkable. IMPRESSION: There is no acute fracture or dislocation in the right ankle. No significant change from prior.
[2019-03-01] MEDS ORDERED: AMOXICILLIN 500MG STARTER PACK 3 CAP BTL PO STA (11:58)
--- NOTE | 2019-03-01 12:04 | ED ---
General Adult HPI - General Chief complaint: Extremity Injury, Lower Stated complaint: right ankle pain Time Seen by Provider: 03/01/19 10:40 Source: patient, RN notes reviewed, old records reviewed Mode of arrival: ambulatory Limitations: no limitations - History of Present Illness Initial comments: Patient is a 33-year-old female, she presents emergency department today for evaluation with chief complaint of right ankle pain. She reports that she is running at a yard tripped when she was chasing her children. She states she also states started to notice that she had a sore throat today, and complaining some minor chills. She states she noticed some white exudate on her throat. She reports her son was also sick earlier in the week. She reported pain with ambulation. - Related Data Home Medications Medication Instructions Recorded Confirmed Levothyroxine Sodium [Synthroid] 125 mcg PO DAILY 05/03/17 03/01/19 Previous Rx's Medication Instructions Recorded Amoxicillin 500 mg PO TID #30 capsule 03/01/19 Ibuprofen [Motrin] 600 mg PO Q6HR PRN #20 tab 03/01/19 Allergies Allergy/AdvReac Type Severity Reaction Status Date / Time sulfamethoxazole Allergy Severe Rash/Hives Verified 03/01/19 10:46 [From Bactrim] trimethoprim [From Bactrim] Allergy Rash/Hives Verified 03/01/19 10:46 azithromycin [From Zithromax] AdvReac Intermediate Nausea & Verified 03/01/19 10:46 Vomiting & Diarrhea Review of Systems ROS Statement: Those systems with pertinent positive or pertinent negative responses have been documented in the HPI. ROS Other: All systems not noted in ROS Statement are negative. Past Medical History Past Medical History: Thyroid Disorder History of Any Multi-Drug Resistant Organisms: None Reported Past Surgical History: No Surgical Hx Reported Past Anesthesia/Blood Transfusion Reactions: No Reported Reaction Past Psychological History: No Psychological Hx Reported Smoking Status: Never smoker Past Alcohol Use History: Occasional Past Drug Use History: None Reported - Past Family History Mother Family Medical History: Diabetes Mellitus General Exam - General Exam Comments Initial Comments: This is a 33-year-old female. Alert and oriented 3. Patient appears in no significant distress. Limitations: no limitations General appearance: alert, in no apparent distress Head exam: Present: atraumatic, normocephalic, normal inspection Eye exam: Present: normal appearance, PERRL, EOMI. Absent: scleral icterus, conjunctival injection, periorbital swelling ENT exam: Present: normal exam, mucous membranes dry, mucous membranes moist. Absent: normal oropharynx (Patient has evidence of erythematous exudates and bilateral tonsillar hypertrophy.) Neck exam: Present: normal inspection. Absent: tenderness, meningismus, lymphadenopathy Respiratory exam: Present: normal lung sounds bilaterally. Absent: respiratory distress, wheezes, rales, rhonchi, stridor Cardiovascular Exam: Present: regular rate, normal rhythm, normal heart sounds. Absent: systolic murmur, diastolic murmur, rubs, gallop, clicks GI/Abdominal exam: Present: soft, normal bowel sounds. Absent: distended, tenderness, guarding, rebound, rigid Extremities exam: Present: normal inspection, full ROM, normal capillary refill. Absent: tenderness, pedal edema, joint swelling, calf tenderness Right Lower Leg exam: Present: normal inspection, full ROM Ankle exam: Present: full ROM, tenderness (over R medial malleolus). Absent: normal inspection Foot/Toe exam: Present: normal inspection, full ROM Neurovascular tendon exam: Present: no vascular compromise Gait: observed and normal Back exam: Present: normal inspection Course Vital Signs 03/01/19 10:37 Temperature 98.1 F Pulse Rate 69 Respiratory 18 Rate Blood Pressure 121/84 O2 Sat by Pulse 98 Oximetry Medical Decision Making - Medical Decision Making 33-year-old female presents emergency department today for evaluation for right ankle pain. Patient poor she tripped yesterday. This time patient's tenderness over medial and lateral malleolus pain with ambulation. She also played a sore throat. She has a positive rapid strep test. We'll give amoxicillin ED. Discharged with crutches, and temperature medicine. Discussed monitoring for any worsening symptoms and she followed or fell her primary care doctor. - Lab Data Lab Results 03/01/19 Range/Units 11:00 Group A Strep Rapid Positive A (Negative) - Radiology Data Radiology results: report reviewed Right ankle x-rays negative for any acute fracture dislocation. No change from prior. Disposition Clinical Impression: Strep throat, Ankle sprain Disposition: HOME SELF-CARE Condition: Good Instructions (If sedation given, give patient instructions): Ankle Sprain (ED), Strep Throat (ED) Additional Instructions: Please use medication as discussed. Please follow up with family doctor if symptoms have not improved over the next two days. Please return to the emergency room if your symptoms increase or worsen or for any other concerns. Prescriptions: Amoxicillin 500 mg PO TID #30 capsule Ibuprofen [Motrin] 600 mg PO Q6HR PRN #20 tab PRN Reason: Pain Is patient prescribed a controlled substance at d/c from ED?: No Referrals: Sarah Santo DO [Primary Care Provider] - 1-2 days Benjie Chu MD [Medical Doctor] - 1-2 days Time of Disposition: 12:02
== END 2019-03-01 12:47 | disposition home or self-care (01) ==
LOC: EC 10:30
DX: S93.401A Sprain of unspecified ligament of right ankle, initial encounter (principal); J02.9 Acute pharyngitis, unspecified; E07.9 Disorder of thyroid, unspecified; Z79.890 Hormone replacement therapy; Z88.2 Allergy status to sulfonamides; Z88.1 Allergy status to other antibiotic agents; W18.40XA Slipping, tripping and stumbling without falling, unspecified, initial encounter; Y93.02 Activity, running; Y92.096 Garden or yard of other non-institutional residence as the place of occurrence of the external cause
CPT/HCPCS: 87430; 99284

== ENCOUNTER → 2023-07-21 | Outpatient (CLI) | payer OTHER | END | disposition home or self-care (01) | LOC: LABWHC1 15:56 | PROVIDERS: ATTEND Internal Medicine Endocrinology, Diabetes & Metabolism | DX: E03.8 Other specified hypothyroidism (principal) | CPT/HCPCS: 36415; 84443 ==

== ENCOUNTER → 2023-09-01 | Outpatient (CLI) | payer OTHER | END | disposition home or self-care (01) | LOC: LABWHC1 13:50 | PROVIDERS: ATTEND Internal Medicine Endocrinology, Diabetes & Metabolism | DX: E03.8 Other specified hypothyroidism (principal) | CPT/HCPCS: 36415; 84443 ==